=== PATIENT | female | born 2000 | race Caucasian/White ===

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

== ENCOUNTER → 2022-10-28 | Outpatient (CLI) | payer OTHER ==
[~2022-10-28] MED LIST changes: +ACET500 PO; +FERREX 150150 MG PO; +IBUP800 PO; +PRENATAL TABLE1 EAC2 PO
[2022-10-28 17:11] LABS: Source, Urine Clean Catch
[2022-10-28 19:26] LABS: U Amphetamine Screen Not Detected; U Barbituate Screen Not Detected; U Benzodiazapine Screen Not Detected; U Buprenorphine Screen Not Detected; U Cannabinoids Screen DETECTED; U Cocaine Screen Not Detected; U Methadone Screen Not Detected; U Methamphetamine Screen Not Detected; U Opiates Screen Not Detected; U Oxycodone Screen Not Detected; U Phencyclidine Screen Not Detected; U Propoxyphene Screen Not Detected
[2022-10-28 19:30] LABS: Bacteria Many /hpf; Squamous Epithelial Cells Mod /hpf (Few); White Blood Cells, Urine 25-50 /hpf (0-5)
[2022-10-28 19:31] LABS: Hyaline Casts 0-2 /lpf (0-2)
[2022-10-29 10:58] LABS: Candida species (DNA Probe) Negative (NEGATIVE); G. vaginalis (DNA Probe) Positive (NEGATIVE); T. vaginalis (DNA Probe) Negative (NEGATIVE)
== END ==
LOC: LAB SHORT 17:07 → LAB 17:07
PROVIDERS: Obstetrics & Gynecology
DX: O09.892 Supervision of other high risk pregnancies, second trimester (principal); N89.8 Other specified noninflammatory disorders of vagina
CPT/HCPCS: 81015; 87086; 87480; 87510; 87660

== ENCOUNTER → 2023-02-17 | Outpatient (CLI) | payer OTHER ==
[2023-02-18 08:09] LABS: HIV AB/P24 AG SCREEN Non Reactive (Non Reactive)
[2023-02-19 06:11] LABS: CHLAMYDIA TRACHOMATIS, NAA Negative (Negative)
== END | disposition home or self-care (01) ==
LOC: LAB 15:48 → LAB SHORT 15:48
PROVIDERS: Obstetrics & Gynecology
DX: O09.892 Supervision of other high risk pregnancies, second trimester (principal); A74.9 Chlamydial infection, unspecified
CPT/HCPCS: 36415; 86592; 87081; 87150; 87389; 87491; 87591

== ENCOUNTER 2023-03-03 03:57 | Inpatient (IN) | payer OTHER ==
[~2023-03-03] VITALS: Ht 157.5 cm; Wt 61.3 kg
[2023-03-03] VITALS (25 sets, daily range): BP systolic 117–151; BP diastolic 58–89
[2023-03-03 04:35] LABS: BASOPHILS ABSOLUTE AUTO 0.04 K/mm3 (0.00-0.23); BASOPHILS PERCENT AUTO 0 % (0-2); EOSINOPHILS ABSOLUTE AUTO 0.05 K/mm3 (0.00-0.68); EOSINOPHILS PERCENT AUTO 0 % (0-6); Hematocrit 34.7 % (33.0-51.0); Hemoglobin 12.2 g/dL (11.5-16.0); IMMATURE GRAN ABSOLUTE AUTO 0.05 K/mm3 (0.00-0.10); IMMATURE GRAN PERCENT AUTO 0 % (0-1); LYMPHOCYTES ABSOLUTE AUTO 2.44 K/mm3 (0.84-5.20); LYMPHOCYTES PERCENT AUTO 16 % (21-46); MONOCYTES ABSOLUTE AUTO 1.14 K/mm3 (0.16-1.47); MONOCYTES PERCENT AUTO 7 % (4-13); Mean Corpuscular HGB 31.9 pg (26.0-34.0); Mean Corpuscular HGB Conc 35.2 g/dL (31.5-36.5); Mean Corpuscular Volume 91 fL (80-100); Mean Platelet Volume 10.8 fL (9.1-12.4); NEUTROPHILS ABSOLUTE AUTO 11.61 K/mm3 (1.96-9.15); NEUTROPHILS PERCENT AUTO 76 % (41-73); Platelet Count 186 K/mm3 (150-400); RDW Standard Deviation 42.5 fL (35.1-46.3); Red Blood Cell Count 3.83 M/mm3 (3.80-5.20); White Blood Cell Count 15.33 K/mm3 (4.00-11.30)
[2023-03-03] MEDS ORDERED: PRENATAL 19 TA1 EAC3 PO (04:56)
[2023-03-04 06:19] LABS: Hematocrit 25.7 % (33.0-51.0); Hemoglobin 8.7 g/dL (11.5-16.0); Mean Corpuscular HGB 31.4 pg (26.0-34.0); Mean Corpuscular HGB Conc 33.9 g/dL (31.5-36.5); Mean Corpuscular Volume 93 fL (80-100); Mean Platelet Volume 11.1 fL (9.1-12.4); Platelet Count 153 K/mm3 (150-400); RDW Standard Deviation 43.8 fL (35.1-46.3); Red Blood Cell Count 2.77 M/mm3 (3.80-5.20); White Blood Cell Count 14.26 K/mm3 (4.00-11.30)
[2023-03-04 09:57] VITALS: BP 113/71
--- NOTE | 2023-03-04 10:38 | NUR ---
DID IV RESTART FOR IRON INFUSION,
[2023-03-04 11:27] VITALS: BP 113/76
--- NOTE | 2023-03-04 11:27 | NUR ---
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 HAS PPFU FOR TOMORROW. 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 SHE DRINKS 2 RED BULLS A DAY AND PLANS TO CUT BACK ON DRINKING THOSE ALSO.
--- NOTE | 2023-03-04 11:37 | NUR ---
AGREE WITH ASSESSMENT
--- NOTE | 2023-03-04 11:53 | NUR ---
DISCHARGE NOTE; PT TO DC AT THIS TIME, DC INSTRUCTIONS GIVEN VIA JAJA GONZÁLES. PT ENCOURAGED TO ASK QUESTIONS AT THIS TIME, PT DENIES ANY QUESTIONS, PT VOIDING AND STOOLING. VAGINAL BLEEDING WNL. PT GIVEN PPFU APPT CARD, PT ADVISED TO ARRIVE TO [facility] 15 MINS PRIOR APPT.
== END 2023-03-04 12:03 | disposition home or self-care (01) | DRG 806 ==
LOC: OBS 03:57 → BC 03:58 → OBS 04:17 → BC 04:19
PROVIDERS: Advanced Practice Midwife; ADMIT Family Medicine
PROC: 10E0XZZ Delivery of Products of Conception, External Approach (ICD-10-PCS; principal; 2023-03-03)
PROC: 10D17Z9 Manual Extraction of Products of Conception, Retained, Via Natural or Artificial Opening (ICD-10-PCS; 2023-03-03)
PROC: 10907ZC Drainage of Amniotic Fluid, Therapeutic from Products of Conception, Via Natural or Artificial Opening (ICD-10-PCS; 2023-03-03)
DX: O48.0 Post-term pregnancy (principal); O72.0 Third-stage hemorrhage; Z37.0 Single live birth; O99.324 Drug use complicating childbirth; Z3A.40 40 weeks gestation of pregnancy; O99.344 Other mental disorders complicating childbirth; F41.9 Anxiety disorder, unspecified; O99.334 Smoking (tobacco) complicating childbirth; O77.0 Labor and delivery complicated by meconium in amniotic fluid; F12.10 Cannabis abuse, uncomplicated; Z86.19 Personal history of other infectious and parasitic diseases
CPT/HCPCS: 36415; 51702; 59025; 85025; 85027; 86850; 86900; 86901; A9270; J0690; J1885; J2405; J2590; J2916; J3010; J7120

== ENCOUNTER 2023-10-02 11:23 | Emergency (ER) | payer OTHER ==
[~2023-10-02] VITALS: Ht 157.5 cm; Wt 42.6 kg
[~2023-10-02 11:23] MED LIST changes: +PRENATAL 19 TA1 EAC3 PO
[2023-10-02 11:28] VITALS: BP 112/72
[2023-10-02 12:39] LABS: Source, Urine Clean Catch
[2023-10-02 12:43] LABS: Appearance, Urine Hazy (Clear); Bilirubin, Urine Neg (Neg); Blood, Urine 1+ (Neg); Color, Urine Yellow (P-Yellow); Glucose Qualitative, Urine Neg (Neg); Ketones, Urine Neg (Neg); Leukocyte Esterase, Urine 1+ (Neg); Nitrite, Urine Neg (Neg); Protein, Urine Neg (Neg); Urobilinogen, Urine NORM (Normal)
[2023-10-02 12:57] LABS: Amorphous Mod (0-Heavy); Bacteria Few /hpf; Red Blood Cells, Urine 0-2 /hpf (0-2); Squamous Epithelial Cells Many /hpf (Few)
== END 2023-10-02 13:42 | disposition left against medical advice (07) ==
LOC: ER 11:23
PROVIDERS: Physician Assistant
DX: Z53.21 Procedure and treatment not carried out due to patient leaving prior to being seen by health care provider (principal)
CPT/HCPCS: 76801; 76817; 81001; 87086; 99282-25

== ENCOUNTER 2024-04-02 12:52 | Inpatient (IN) | payer OTHER ==
[~2024-04-02] VITALS: Ht 160 cm; Wt 55.0 kg
[2024-04-02] VITALS (11 sets, daily range): BP systolic 109–160; BP diastolic 60–87
[2024-04-02] MEDS ORDERED: Calcium Carbonate 500 MG Tab Chew PO SCH (14:15)
[2024-04-02] MEDS ORDERED: OXYTOCIN/RINGER'S LACTATE 500 ML IV PRN (14:15)
[2024-04-02] MEDS ORDERED: Oxytocin 10 Unit / ML Vial IM PRN (14:15)
[2024-04-02] MEDS ORDERED: Methylergonovine Maleate 0.2MG / ML 1ML Amp IM PRN ×2 (14:15→16:20)
[2024-04-02] MEDS ORDERED: ePHEDrine Sulfate 50 MG/ML 1ML Injection XX PRN (14:15)
[2024-04-02] MEDS ORDERED: Lactated Ringer's 1,000 ML IV SCH ×3 (14:15→16:20)
[2024-04-02] MEDS ORDERED: FentaNYL 2mcg/ml-Bup 0.1% Epd 250 ML EPI PRN (14:15)
[2024-04-02] MEDS ORDERED: Ondansetron HCl 2 MG / ML 2ML Vial IV PRN (14:15)
[2024-04-02] MEDS ORDERED: Acetaminophen 500 MG Tab PO PRN (14:15)
[2024-04-02] MEDS ORDERED: Misoprostol 200 MCG Tab BC PRN ×2 (14:15→16:30)
[2024-04-02] MEDS ORDERED: Carboprost Tromethamine 250 MCG/ML 1ML Amp IM PRN (14:15)
[2024-04-02] MEDS ORDERED: Tranexamic Acid 100 ML IV SCH (14:15)
[2024-04-02] MEDS ORDERED: Lactated Ringer's 1,000 ML IV PRN (14:15)
[2024-04-02] MEDS ORDERED: Penicillin G Potassium 5,000,000 UNITS in NS 250 ML IV ONE (14:15)
[2024-04-02] MEDS ORDERED: Misoprostol 200 MCG Tab PR PRN (14:15)
[2024-04-02 15:00] LABS: BASOPHILS ABSOLUTE AUTO 0.05 K/mm3 (0.00-0.23); BASOPHILS PERCENT AUTO 0 % (0-2); EOSINOPHILS ABSOLUTE AUTO 0.03 K/mm3 (0.00-0.68); EOSINOPHILS PERCENT AUTO 0 % (0-6); Hematocrit 37.4 % (33.0-51.0); Hemoglobin 12.8 g/dL (11.5-16.0); IMMATURE GRAN ABSOLUTE AUTO 0.11 K/mm3 (0.00-0.10); IMMATURE GRAN PERCENT AUTO 1 % (0-1); LYMPHOCYTES ABSOLUTE AUTO 1.89 K/mm3 (0.84-5.20); LYMPHOCYTES PERCENT AUTO 10 % (21-46); MONOCYTES ABSOLUTE AUTO 0.96 K/mm3 (0.16-1.47); MONOCYTES PERCENT AUTO 5 % (4-13); Mean Corpuscular HGB 32.4 pg (26.0-34.0); Mean Corpuscular HGB Conc 34.2 g/dL (31.5-36.5); Mean Corpuscular Volume 95 fL (80-100); Mean Platelet Volume 10.5 fL (9.1-12.4); NEUTROPHILS PERCENT AUTO 85 % (41-73); Platelet Count 176 K/mm3 (150-400); RDW Coefficient Variation 13.5 % (11.7-14.2); RDW Standard Deviation 46.6 fL (35.1-46.3); Red Blood Cell Count 3.95 M/mm3 (3.80-5.20); White Blood Cell Count 19.84 K/mm3 (4.00-11.30)
[2024-04-02] MEDS ORDERED: Penicillin G Potassium 2,500,000 UNITS in Dextrose 5% 100 ML IV SCH (16:00)
[2024-04-02] MEDS ORDERED: Acetaminophen 325 MG TABLET PO PRN (16:15)
[2024-04-02] MEDS ORDERED: Acetaminophen/Codeine 300-30 mg PO PRN (16:15)
[2024-04-02] MEDS ORDERED: Lanolin Cream TOP PRN (16:15)
[2024-04-02] MEDS ORDERED: Diphth,Pertuss(Acell),Tet Vac 0.5 ML VIAL IM SCH (16:15)
[2024-04-02] MEDS ORDERED: Benzocaine Topical Anesthetic Spray 60GM TOP PRN (16:15)
[2024-04-02] MEDS ORDERED: Measles/Mumps/Rubella Vaccine 0.5 ML Vial SC SCH (16:20)
[2024-04-02] MEDS ORDERED: Ketorolac Tromethamine 30mg Vial IV PRN (16:20)
[2024-04-02] MEDS ORDERED: FLU VACC TS2024-25(6MOS UP)/PF 45 MCG/0.5 ML SYRINGE IM SCH (16:20)
[2024-04-02] MEDS ORDERED: Oxytocin 10 Unit / ML Vial IM ONE (16:20)
[2024-04-02] MEDS ORDERED: Docusate Sodium 100 MG Cap PO PRN (16:20)
[2024-04-02] MEDS ORDERED: OXYTOCIN/RINGER'S LACTATE 500 ML IV SCH (16:20)
[2024-04-02] MEDS ORDERED: Ibuprofen 400 MG Tab PO PRN (16:25)
[2024-04-02] MEDS ORDERED: Witch Hazel/Glycerin PADS TOP PRN (16:25)
--- NOTE | 2024-04-02 19:23 | NUR ---
REPORT TO ELIECER KNUTSON
[2024-04-02 22:08] LABS: U Amphetamine Screen Not Detected; U Barbituate Screen Not Detected; U Benzodiazapine Screen Not Detected; U Buprenorphine Screen Not Detected; U Cannabinoids Screen DETECTED; U Cocaine Screen Not Detected; U Methadone Screen Not Detected; U Methamphetamine Screen Not Detected; U Opiates Screen Not Detected; U Oxycodone Screen Not Detected; U Phencyclidine Screen Not Detected
--- NOTE | 2024-04-02 22:27 | NUR ---
POC IS TO DC PT TONIGHT SINCE HER BABY WAS TRANSPORTED UP TO THE NICU AT [facility]. EPDS IS SCORED 12 WITH NUMBER 10 SCORED A 1. SOCIAL WORK IS NOT AVAILABLE AT THIS TIME FOR A CONSULT AND PT DOES NOT WISH TO STAY OVERNIGHT FOR A CONSULT IN THE MORNING. SHE SHARES THAT SHE HAS A HX OF SELF HARM, BUT NONE CURRENT OR RECENT, AND THAT HER LIVING SITUATION WAS NOT GOOD, BUT THAT IS NOW RESOLVED AND SHE HAS FAMILY SUPPORT IF SHE NEEDS HELP. SHE ALSO DENIES ANY CURRENT OR RECENT SI. Leroy CURIEL CNM, THE DISCHARGING PROVIDER, CONDUCTS A PHONE CONSULT WITH THE PATIENT AND DETERMINES SHE IS IN A SAFE SITUATION AND HAS NO CURRENT THOUGHTS OF SELF HARM OR SI. Leroy CURIEL WILL HAVE STAFF FROM [facility] CONTACT THE PT ON FRIDAY TO MAKE A FOLLOW UP APPOINTMENT AND PHONE FOLLOW UP IS SCHEDULED WITH [facility] FOR FRIDAY AT 0830. PT WILL CALL HER PROVIDER OR [facility] FOR ANY CONCERNS.
[2024-04-03] MEDS ORDERED: Prenatal Vit/FE Fumarate/FA 1 Tab PO SCH (09:00)
--- NOTE | 2024-04-05 08:40 | NUR ---
ATTEMPTED TO CALL PT FOR OVER THE PHONE PPFU APPOINTMENT. PHONE NUMBER LISTED ON NOTE IS INCORRECT. ATTEMPTED TO CALL THE NUMBER ON THE PT FACE SHEET, GOES TO A VOICEMAIL WITH A DIFFERENT PERSON'S NAME, SO NO MESSAGE LEFT. BILL IS TO CALL PT TODAY TO MAKE APPT FOR PT AND PT WAS TOLD TO CALL DR SCHNEIDER FOR 2 WEEK APPOINTMENT.
[2024-04-05 12:49] LABS: HEPATITIS C AB CIA INTERP Negative (Negative); HEPATITIS C ANTIBODY CIA INDEX 0.09 IV
== END 2024-04-02 22:33 | disposition home or self-care (01) | DRG 807 ==
LOC: OBS 12:52 → BC 14:10
PROVIDERS: Advanced Practice Midwife; ADMIT Registered Nurse Community Health
PROC: 10E0XZZ Delivery of Products of Conception, External Approach (ICD-10-PCS; principal; 2024-04-02)
PROC: 10907ZC Drainage of Amniotic Fluid, Therapeutic from Products of Conception, Via Natural or Artificial Opening (ICD-10-PCS; 2024-04-02)
DX: O99.334 Smoking (tobacco) complicating childbirth (principal); Z37.0 Single live birth; F17.210 Nicotine dependence, cigarettes, uncomplicated; Z79.899 Other long term (current) drug therapy; Z3A.37 37 weeks gestation of pregnancy
CPT/HCPCS: 36415; 85025; 86803; 86850; 86900; 86901; J1885; J7120